=== PATIENT | male | born 1960 | race Caucasian/White ===

== ENCOUNTER 2019-04-30 09:14 | Emergency (ER) | payer BC ==
[~2019-04-30] VITALS: Ht 177.8 cm; Wt 99.8 kg
[2019-04-30 09:20] VITALS: Ht 177.8 cm; Wt 99.8 kg
[2019-04-30 12:15] VITALS: BP 150/98
== END 2019-04-30 12:15 | disposition home or self-care (01) ==
LOC: ED 09:14
DX: M54.41 Lumbago with sciatica, right side (principal); I10 Essential (primary) hypertension; E03.9 Hypothyroidism, unspecified; Z88.8 Allergy status to other drugs, medicaments and biological substances
CPT/HCPCS: J1885; J2270; J2405